=== PATIENT | female | born 1970 | race Caucasian/White ===

== ENCOUNTER 2020-11-15 12:53 | Emergency (ER) | payer BC ==
[~2020-11-15] VITALS: Ht 175.3 cm; Wt 90.7 kg
[~2020-11-15 12:53] MED LIST: ADDERALL 20 MG20 MG PO; ADDERALL XR 1515 MG; CELEXA20 MG PO; CYMBALTA20 MG PO; GABAPENTIN100 MG PO; HYDROCODON-ACE1 EAC7 PO; K-DUR10 MEQ PO; LYRICA150 MG PO; MEDROLDOSEPACK PO; ROBAXIN500 MG PO; SILVADENE20 GM TP; TRAMADOL 50 MG50 MG PO; VICODIN 5-3001 EACH; ZOFRAN 4 MG ORAL4 MG PO
[2020-11-15] MEDS ORDERED: BACTRIM DS TAB1 EACH PO (14:14)
[2020-11-15] MEDS ORDERED: IBUPROFEN 800800 M1 PO (14:14)
[2020-11-15] MEDS ORDERED: HYDROCODON-ACE1 EAC7 PO (14:15)
[2020-11-15 14:21] VITALS: BP 124/68
== END 2020-11-15 14:22 | disposition home or self-care (01) ==
LOC: M.ERS 12:53
DX: S60.552A Superficial foreign body of left hand, initial encounter (principal); L08.9 Local infection of the skin and subcutaneous tissue, unspecified; X58.XXXA Exposure to other specified factors, initial encounter; Y93.89 Activity, other specified; Y92.89 Other specified places as the place of occurrence of the external cause; Y99.8 Other external cause status